=== PATIENT | male | born 1935 | race Caucasian/White ===

== ENCOUNTER 2016-05-14 04:52 | Inpatient (IN) | payer OTHER ==
[2016-04-19 11:55] VITALS: BMI 32.0
--- NOTE | 2016-04-19 12:39 | PAT Medication Instructions ---
Service Date Apr 19, 2016. Current Home Medication List Aspirin (Aspirin), 325 MG PO HS Budesonide/Formoterol Fumarate (Symbicort 160/4.5 Inhaler ), 2 PUFFS INH BID Carvedilol (Coreg), 6.25 MG PO QAM Digoxin (Digoxin), 1 TAB PO QAM Esomeprazole Magnesium (Nexium), 40 MG PO DAILY PRN for Indigestion Ezetimibe (Zetia), 10 MG PO HS Metformin Hcl (Glucophage Ext Rel), 1,000 MG PO BID Montelukast Sodium (Montelukast Sodium), 1 TAB PO QAM Nifedipine (Procardia), 10 MG PO BID Simvastatin (Zocor), 20 MG PO QPM Sitagliptin (Januvia), 100 MG PO QAM Tiotropium [place] (Spiriva Handihaler), 1 CAP INH QAM Triamterene/Hctz (Dyazide 37.5MG/25MG), 1 TAB PO QAM Zolpidem Tartrate (Zolpidem Tartrate), 1 TAB PO HS PRN for Insomnia [Captopril], 50 MG PO QAM [Nebulizer], 1 DOSE INH UD PRN for SOB/Wheezing Medication Instructions For Your Scheduled Surgery Aspirin (Aspirin), 325 MG PO HS (changed from aspirin 325mg to aspirin 81 one week prior to surgery and continue as usual) - Hold the following medications 48 hours prior to surgery: Metformin Hcl (Glucophage Ext Rel), 1,000 MG PO BID - Hold the following medications the morning of surgery: Triamterene/Hctz (Dyazide 37.5MG/25MG), 1 TAB PO QAM Sitagliptin (Januvia), 100 MG PO QAM Captopril 50 MG PO QAM - Take the following medications the morning of surgery with a sip of water: Nebulizer 1 DOSE INH UD PRN for SOB/Wheezing (if needed) Tiotropium [place] (Spiriva Handihaler), 1 CAP INH QAM Nifedipine (Procardia), 10 MG PO BID Montelukast Sodium (Montelukast Sodium), 1 TAB PO QAM Esomeprazole Magnesium (Nexium), 40 MG PO DAILY PRN for Indigestion Digoxin (Digoxin), 1 TAB PO QAM Carvedilol (Coreg), 6.25 MG PO QAM Budesonide/Formoterol Fumarate (Symbicort 160/4.5 Inhaler ), 2 PUFFS INH BID - Take the following medications as scheduled the night before surgery: Zolpidem Tartrate (Zolpidem Tartrate), 1 TAB PO HS PRN for Insomnia Simvastatin (Zocor), 20 MG PO QPM Nifedipine (Procardia), 10 MG PO BID Ezetimibe (Zetia), 10 MG PO HS Budesonide/Formoterol Fumarate (Symbicort 160/4.5 Inhaler ), 2 PUFFS INH BID Aspirin 81mg If you have any questions please call us at [phone] or [phone] ( Meghan) or [phone]
--- NOTE | 2016-04-19 13:16 | DIAGNOSTIC IMAGING REPORT ---
CHEST PREADMISSION(PA/LAT) CLINICAL HISTORY: PAT preoperative evaluation COMPARISON STUDY: None. FINDINGS: Prior median sternotomy. Thoracic aorta is tortuous. Diaphragms smooth. Lungs are clear. IMPRESSION:: No acute process. Prior median sternotomy. Electronically signed by: Jah Toth M.D. 04/19/2016 1:14 PM Dictated Date/Time: 04/19/2016 1:14 PM
[2016-04-19 13:28] LABS: BASO % 0.3 %; BASO ABS # 0.02 K/uL (0-0.2); COMPLETE YES; EOS % 2.7 %; HEMATOCRIT 43.8 % (42-52); IG% 0.1 %; LYMPH % 32.2 %; LYMPH ABS # 2.48 K/uL (1.2-3.4); MEAN CELL VOLUME 86.7 fL (80-100); MEAN CORPUSCULAR HEMOGLOBIN 31.1 pg (25-34); MEAN CORPUSCULAR HGB CONC 35.8 g/dl (32-36); MEAN PLATELET VOLUME 9.9 fL (7.4-10.4); MONO % 5.2 %; NEUT % 59.5 %; PLATELET COUNT 163 K/uL (130-400); RED BLOOD COUNT 5.05 M/uL (4.7-6.1); WHITE BLOOD COUNT 7.71 K/uL (4.8-10.8)
[2016-04-19 13:34] LABS: INR 1.1 (0.9-1.1); PARTIAL THROMBOPLASTIN RATIO 1.2; PROTHROMBIN TIME (PATIENT) 11.4 SECONDS (9.0-12.0)
[2016-04-19 13:37] LABS: ESTIMATED AVERAGE GLUCOSE 148 mg/dl; HA1C FLAG Normal (Normal)
[2016-04-19 13:42] LABS: URINE APPEARANCE CLEAR (CLEAR); URINE BILIRUBIN NEG (NEG); URINE COLOR YELLOW; URINE NITRITE NEG (NEG); URINE SPECIFIC GRAVITY 1.019 (1.000-1.030); UROBILINOGEN NEG (NEG); ZZUR CULT IF INDIC CLEAN CATCH NO
[2016-04-19 13:51] LABS: MANUAL MICROSCOPIC REQUIRED? NO; REVIEW REQ? NO
--- NOTE | 2016-05-04 13:35 | HISTORY & PHYSICAL EXAMINATION ---
DATE OF ADMISSION: 05/14/2016 CHIEF COMPLAINT: Left knee pain. HISTORY OF PRESENT ILLNESS: Mr. Suarez is an 81-year-old male with a multiple year history of pain in his left knee. The patient rates his pain a 9/10. He has pain with his daily activities. He has limited standing and walking tolerance. Pain is worse with weightbearing. The patient has failed conservative treatment and is scheduled for left knee replacement. PAST MEDICAL HISTORY: Hypertension, hypercholesterolemia, history of heart disease, diabetes and Afib. He denies history of DVT. PAST SURGICAL HISTORY: Cardiac bypass, right total knee arthroplasty. SOCIAL HISTORY: The patient denies alcohol or tobacco use. He quit smoking in 1980. He lives in a single story home. He is and retired. FAMILY HISTORY: Negative for DVT. MEDICATIONS: Captopril 50 mg daily, carvedilol 12.5 mg half tablet daily, digoxin 0.25 mg daily, omeprazole 40 mg daily, 10 mg daily, hydrochlorothiazide/triamterene 75 mg half tablet daily, metformin 1000 mg b.i.d., montelukast 10 mg daily, nifedipine 10 mg b.i.d., simvastatin 40 mg daily, sitagliptin 100 mg daily, zolpidem 10 mg daily. ALLERGIES: None. REVIEW OF SYSTEMS: See HPI. Ten other systems reviewed, all negative. PHYSICAL EXAMINATION: VITAL SIGNS: Height 6 foot 1, weight 245 pounds, BMI not calculated. GENERAL: This is a well-developed, well-nourished male who is alert and oriented x3. Mood and affect are appropriate. HEAD, EYES, EARS, NOSE, AND THROAT: Normocephalic, atraumatic. Mucous membranes are moist and intact. NECK: Supple without lymphadenopathy. HEART: Regular rate and rhythm without murmurs, rubs or gallops. LUNGS: Clear to auscultation without wheezes or rhonchi. ABDOMEN: Soft and nontender. Bowel sounds are equal and active. EXTREMITIES: No ecchymosis, redness or warmth. Thigh and calf are soft and nontender. He has a varus deformity. Range of motion is from 5-115 degrees with +1 laxity. He is neurovascularly intact with +5/5 strength. X-RAY EXAMINATION: AP and lateral views show joint space narrowing and osteophyte formation. IMPRESSION: Degenerative joint disease left knee. PLAN: The patient will be admitted for a left total knee arthroplasty. We will plan on aspirin for DVT prophylaxis. BRYSON
[2016-05-14] VITALS (10 sets, daily range): BP systolic 127–178; BP diastolic 50–90; PULSE 60–70; TEMP 36.4–36.7; O2SAT 94–97; Ht 185.4 cm; Wt 111.0 kg
[~2016-05-14] VITALS: Ht 185.4 cm; Wt 111.0 kg
[~2016-05-14 04:52] MED LIST: ASPI325T45 PO; CAPTPOW PO; CARV6.252 PO; EZET10TA63 PO; LACTATED RINGER'S 1000ML 1,000 ML IV SCH; LNX25 PO; METF1TAB53 PO; MONT1TAB5 PO; NEBUMIS38 INH; NIFE10CA20 PO; NXM/40 PO; SIMV20TA2 PO; SITA50TA3 PO; SPRIN/30 INH; SYMIN160 INH; TRIA37.5 PO; ZOLP10TA6 PO
[2016-05-14] MEDS ORDERED: LACTATED RINGER'S 1000ML 1,000 ML IV SCH ×2 (06:00)
[2016-05-14] MEDS ORDERED: LACTATED RINGER'S 1000ML 500 ML IV ONE (06:00)
[2016-05-14] MEDS ORDERED: OXYCODONE HCL 10 MG TABCR (OXYCONTIN) PO SCH (06:00)
[2016-05-14] MEDS ORDERED: POLYMYXIN B SULFATE 100,000 UNITS in NSS 100ML IR SCH (06:00)
[2016-05-14] MEDS ORDERED: ACETAMINOPHEN 500 MG TAB PO SCH (06:00)
[2016-05-14] MEDS ORDERED: VANCOMYCIN INJ 400 MG in NSS 100ML IR SCH (06:00)
[2016-05-14] MEDS ORDERED: CARVEDILOL 6.25 MG TAB PO SCH (06:00)
[2016-05-14] MEDS ORDERED: DIGOXIN 0.25 MG TAB PO SCH (06:00)
[2016-05-14] MEDS ORDERED: CAPTOPRIL 25 MG TAB PO SCH (06:00)
[2016-05-14] MEDS ORDERED: GABAPENTIN 300 MG CAP PO SCH (06:00)
[2016-05-14] MEDS ORDERED: CEFAZOLIN 2000 MG/60 ML D5W 60 ML IV SCH (06:00)
[2016-05-14] MEDS ORDERED: CeleBREX 200 MG CAP PO SCH (06:00)
[2016-05-14] MEDS ORDERED: ROPIVACAINE 5MG/ML 30 ML 150 MG, BUPIVACAINE/EPINEPHR 0.5% MPF 30 ML, KETOROLAC TROMETH... INFIL SCH ×7 (06:00)
[2016-05-14] MEDS ORDERED: FAMOTIDINE 20 MG TAB PO SCH (06:00)
[2016-05-14] MEDS ORDERED: NIFEdipine 10 MG CAP PO SCH (06:00)
[2016-05-14] MEDS ORDERED: METOCLOPRAMIDE HCL 10 MG TAB PO SCH (06:00)
[2016-05-14] MEDS: TRANEXAMIC ACID INJ 1,000 MG in SODIUM CHLORIDE 0.9% 100ML 100 ML IV SCH ×2 (06:23→06:30)
[2016-05-14] MEDS ORDERED: BUPIVACAINE 0.5 % 5 MG/1 ML PF 10ML VIAL ONE (06:32)
[2016-05-14] MEDS ORDERED: BUPIVACAINE 0.25% 30 ML VIAL ONE (06:32)
--- NOTE | 2016-05-14 06:38 | History & Physical Bridge Note ---
H&P Re-Evaluation Bridge Note: I have examined the patient, reviewed the History & Physical and in the interval since the performance of the History & Physical I have noted the following changes of clinical significance: No changes noted
[2016-05-14] MEDS ORDERED: ORTHO JOINT ANESTHETIC ONE (06:53)
[2016-05-14] MEDS ORDERED: POVIDONE-IODINE OP SOLN 30 ML BTL ONE (06:53)
[2016-05-14] MEDS ORDERED: BUPIVACAINE/EPINEPHRINE 0.25% 1:200,000 30 ML VIAL ONE (06:53)
[2016-05-14] MEDS ORDERED: BACITRACIN 50000 UNIT VIAL ONE (06:53)
[2016-05-14] MEDS ORDERED: FENTANYL CITRATE INJ 50 MCG/1 ML 2 ML VIAL ONE (07:01)
[2016-05-14] MEDS ORDERED: MIDAZOLAM HCL 1 MG/ML 2ML VIAL ONE (07:01)
[2016-05-14] MEDS ORDERED: ONDANSETRON INJ 2 MG/ML 2 ML VIAL ONE (07:20)
[2016-05-14] MEDS ORDERED: EpHEDrine SULFATE 50MG/5ML SYR ONE (07:36)
[2016-05-14] MEDS ORDERED: PROPOFOL IV EMULSION 10 MG/ML 20 ML VIAL IV ONE (07:36)
[2016-05-14] MEDS ORDERED: ONDANSETRON INJ 2 MG/ML 2 ML VIAL IV PRN ×2 (07:45→08:15)
[2016-05-14] MEDS ORDERED: ATROPINE SULFATE 0.1 MG/ML 5ML SYR IV PRN (07:45)
[2016-05-14] MEDS ORDERED: FENTANYL CITRATE INJ 50 MCG/1 ML 2 ML VIAL IV PRN (07:45)
[2016-05-14] MEDS ORDERED: EpHEDrine SULFATE INJ 50 MG/ML AMP IV PRN (07:45)
--- NOTE | 2016-05-14 08:12 | [facility] Post Operative Brief Note ---
Immediate Operative Summary Operative Date May 14, 2016. Pre-Operative Diagnosis Left knee degenerative joint disease Post-Operative Diagnosis Left knee degenerative joint disease Procedure(s) Performed Left total knee arthroplasty Surgeon Dr. Doroteo Seay [employer] Supervisor Surgeon(s) Vikas Gaytan PA-C Estimated Blood Loss 100 Findings djd Specimens A. Left knee bone and tissue Complication(s) None Disposition Recovery Room / PACU
[2016-05-14] MEDS ORDERED: METOCLOPRAMIDE HCL INJ 5 MG/ML 2 ML VIAL IV PRN (08:15)
[2016-05-14] MEDS ORDERED: ZOLPIDEM TARTRATE 5 MG TAB PO PRN (08:15)
[2016-05-14] MEDS ORDERED: SOD PHOSPHATE/SOD BIPHOSPHATE ENEMA 132 ML BTL PR PRN (08:15)
[2016-05-14] MEDS ORDERED: DiphenhydrAMINE HCL 50 MG/ML VIAL IV PRN (08:15)
[2016-05-14] MEDS ORDERED: ALUMINUM/MAGNESIUM/SIMETH (MAALOX MAX) 30 ML UDC PO PRN (08:15)
[2016-05-14] MEDS ORDERED: MoRPHine SULFATE 2 MG/ML CARP IV PRN (08:15)
[2016-05-14] MEDS ORDERED: KETOROLAC TROMETHAMINE 15 MG/ML VIAL IV. PRN (08:15)
[2016-05-14] MEDS ORDERED: TRAMADOL HCL 50 MG TAB PO PRN (08:15)
[2016-05-14] MEDS ORDERED: BISACODYL 10 MG SUPP PR PRN (08:15)
[2016-05-14] MEDS ORDERED: TAMSULOSIN HCL 0.4 MG CAP PO PRN (08:15)
[2016-05-14] MEDS ORDERED: ZOLPIDEM TARTRATE 10 MG TAB PO PRN (08:15)
[2016-05-14] MEDS ORDERED: MAGNESIUM HYDROXIDE SUSP 30 ML UDC PO PRN (08:15)
[2016-05-14] MEDS ORDERED: PHARMACY GLYCEMIC MGMT CONSULT PRN (08:25)
[2016-05-14] MEDS: MULTIVITAMIN TAB PO SCH (09:00)
[2016-05-14] MEDS ORDERED: SITAGLIPTIN 100 MG PO SCH (09:00)
[2016-05-14] MEDS: PANTOprazole SOD 40 MG TAB PO SCH (09:00)
--- NOTE | 2016-05-14 09:31 | Anesthesiology Progress Note ---
Anesthesia Post Op Note Date & Time May 14, 2016 at 09:31 Vital Signs Pain Intensity: 0 Vital Signs Past 12 Hours Date Time Temp Pulse Resp B/P Pulse Ox O2 Delivery O2 Flow Rate FiO2 05/14/16 09:25 36.7 68 22 145/83 98 Nasal Cannula 2 05/14/16 09:15 59 25 133/74 98 Nasal Cannula 2 05/14/16 09:05 61 15 144/76 98 Nasal Cannula 2 05/14/16 08:55 57 21 138/74 100 Mask 10 05/14/16 08:48 36.4 60 14 129/74 100 Mask 10 05/14/16 05:38 36.6 60 20 178/90 97 Room Air Notes Mental Status: alert / awake / arousable, participated in evaluation Pt Amnestic to Procedure: Yes Nausea / Vomiting: adequately controlled Pain: adequately controlled Airway Patency, RR, SpO2: stable & adequate BP & HR: stable & adequate Hydration State: stable & adequate Neuraxial Anesthesia: was administered, sensory block is resolving Anesthetic Complications: no major complications apparent
--- NOTE | 2016-05-14 10:54 | DIAGNOSTIC IMAGING REPORT ---
LEFT KNEE 2 VIEWS CLINICAL HISTORY: Degenerative arthritis. Postop study. COMPARISON: None. DISCUSSION: There are postsurgical changes of a total left knee arthroplasty and patellar resurfacing. The femoral and tibial components appear well seated. Overlying surgical drains are evident. There is air in the soft tissues consistent with history of recent surgery. IMPRESSION: Postsurgical changes of a total left knee arthroplasty. Electronically signed by: Alfred Jeffrey M.D. 05/14/2016 10:52 AM Dictated Date/Time: 05/14/2016 10:51 AM
[2016-05-14] MEDS ORDERED: PNEUMOCOCCAL POLYSACCHARIDES 25 MCG/0.5 ML VIAL/SYR IM. ONE (11:15)
[2016-05-14] MEDS ORDERED: PNEUMOCOCCAL ADMINISTRATION CHARGE ONE (11:15)
--- NOTE | 2016-05-14 11:31 | Pharmacy Progress Note ---
Glycemic Control Intl Consult Date of Service May 14, 2016. Scope Glycemic Pharmacist consulted by on 05/14/16 for glycemic control and to write orders per [facility] inpatient glycemic control protocol Objective Weight (Kilograms): 111.000 Accuchecks BSG (last 24hrs): Test 05/14/16 05:33 05/14/16 09:09 05/14/16 10:19 Bedside Glucose 173 mg/dl (70-99) 188 mg/dl (70-99) 206 mg/dl (70-99) Recent Pertinent Medications Outpatient Anti-diabetic Regimen: * Metformin 1gm BIDM, Januvia 100mg qAM * A1c = 6.8 % from 04/19/16 (EAG = 148 mg/dl) Risk Factors for Insulin Resistance: * Infection: Ancef for surgical prophylaxis xavier-op * IVF: NS at 100 ml/hr postop * Recent Surgery: POD 0 - L TKA * Diet: DM2 Assessment & Plan ASSESSMENT: * ADA & AACE recommend a goal blood sugar range 140-180 mg/dl for the majority of critically ill & non-critically ill patients. However, more stringent targets may be selected in individual cases. * 81 yo male admitted s/p L TKA today by Dr. Seay. * No steroids administered so far. * BSGs are well-controlled on home regimen of oral diabetes medications alone. Will hold these agents upon admission. Plan to resume home regimen 1-2 days prior to discharge assuming no interactions or contraindications to do so. Will assess kidney function prior to restart of Metformin or Januvia. * I do not suspect basal insulin is necessary for this pt. Will re-consider if FBG is elevated. * Will initiate inpatient regimen with Novolog SQ utilizing conservative weight- based dosing. Would expect that CR can be removed once oral DM meds re- introduced. * I suspect this pt will be insulin sensitive based upon A1c of less than 7.0% on oral DM agents alone. PLAN FOR INPATIENT GLYCEMIC CONTROL: * Hold oral diabetes medications * No basal insulin * Novolog ACHS * Set correction factor to 40 mg/dl/unit * Set carb ratio to 1 unit per 15 grams CHO consumed * Set goal range to Low 110 mg/dL - High 140 mg/dL - more stringent goal chosen in an effort to improve glycemic control post-operatively aiding in the healing process. * Please note that the plan above was derived based on current level of insulin resistance and hospital stress. These recommendations are appropriate for inpatient admission only. Plan of care upon discharge will need to be reassessed to avoid potential outpatient hypo/hyperglycemia. Thank you.
[2016-05-14] MEDS: SODIUM CHLORIDE 0.9% 1000ML 1,000 ML IV SCH ×2 (11:40→17:47)
[2016-05-14] MEDS ORDERED: DEXTROSE 50% 50 ML SYR IV PRN (11:45)
[2016-05-14] MEDS ORDERED: GLUCOSE 40% GEL 15 GM TUBE PO PRN (11:45)
[2016-05-14] MEDS ORDERED: GLUCOSE 10 TABS/TUBE PO PRN (11:45)
[2016-05-14] MEDS ORDERED: GLUCAGON FOR INJ 1 MG VIAL SQ PRN (11:45)
[2016-05-14] MEDS: INSULIN ASPART 100 UNITS/ML 3 ML PEN SC SCH ×3 (12:09→21:04)
[2016-05-14] MEDS: ACETAMINOPHEN 500 MG TAB PO SCH ×2 (13:31→20:59)
[2016-05-14] MEDS: CEFAZOLIN IV 2,000 MG in DEXTROSE 5% 50ML 50 ML IV SCH ×2 (14:22→20:58)
[2016-05-14] MEDS ORDERED: TRANEXAMIC ACID INJ 1,000 MG in SODIUM CHLORIDE 0.9% 100ML 100 ML IV SCH (14:30)
--- NOTE | 2016-05-14 14:33 | CARDIOLOGY CONSULTATION REPORT ---
DATE OF CONSULTATION: 05/14/2016 REASON FOR CONSULTATION: 1. Postoperative medical and cardiologic management. 2. CAD status post CABG x1 vessel 33 years ago (arterial graft, details unknown). HISTORY OF PRESENT ILLNESS: Mr. Suraez is a very pleasant 81-year-old white male with a history of type 2 diabetes mellitus, hypertension, dyslipidemia, advanced DJD, paroxysmal atrial fibrillation/atrial flutter, and longstanding CAD status post CABG x1 vessel 33 years ago (arterial graft, details unknown. Surgery performed at [facility]). The patient underwent a left total knee arthroplasty earlier today with Dr. Doroteo Seay, and thus far his postoperative course has been uncomplicated. The patient is currently being seen in room 311 and admits to regurgitating a bit of his lunch due to a probable esophageal stricture. He needs to cut his meat up into smaller pieces before he tries to eat it. He is otherwise doing well. He has been completely asymptomatic from a cardiac standpoint since being admitted, and leading up to this hospitalization. The patient has not had any angina pectoris in years. He was somewhat limited in his activities by left knee pain, leading up to this surgery, but golfed 5 different times in April, walking 18 holes. This was approximately a 2-mile walk. He specifically denies any exertional chest pain, heaviness, tightness, pressure or angina pectoris. No exertional neck, jaw, back or arm pain. No shortness of breath, unusual dyspnea on exertion, or any recent decrease in exertional tolerance. He further denies any recent atrial fibrillation, but he was asymptomatic in the past with this. He denies any palpitations, tachy palpitations, syncope or near syncope. MEDICATIONS: 1. Celebrex 200 mg daily. 2. Digoxin 250 mcg daily. 3. Coreg 6.25 mg b.i.d. 4. Spiriva Handihaler 1 puff q.a.m. 5. Dyazide 37.5/25 one capsule daily. 6. Captopril 50 mg each morning. 7. OxyContin 10 mg p.o. q. 12 hours. 8. Senokot 17.2 mg at bedtime. 9. Aspirin 81 mg b.i.d. 10. Symbicort 160/4.5 two puffs b.i.d. 11. Zetia 10 mg at bedtime. 12. Procardia 10 mg b.i.d. 13. Zocor 20 mg at bedtime. 14. Ancef 2000 mg IV q. 8 hours. 15. Tylenol 1000 mg p.o. q. 8 hours. 16. NovoLog sliding scale insulin. 17. Multivitamin daily. 18. Protonix 40 mg a day. 19. OxyIR 1 or 2 tablets every 4 hours as needed for pain. 20. Morphine sulfate 2 mg IV q. 2 hours while awake as needed for severe breakthrough pain. 21. Milk of magnesia p.r.n. 22. Dulcolax p.r.n. 23. Fleet Enema p.r.n. 24. Benadryl p.r.n. 25. Maalox Max p.r.n. 26. Zofran 4 mg q. 6 hours IV p.r.n. for nausea or vomiting. 27. Reglan 10 mg IV q. 6 hours p.r.n. for nausea or vomiting. 28. Flomax 0.4 mg q.a.m. as needed if unable to void. 29. Ultram 1 tablet p.o. q. 4 hours p.r.n. 30. Toradol 15 mg IV q. 6 hours p.r.n. for pain. 31. Ambien 10 mg at bedtime p.r.n. for sleep. 32. Normal saline at 100 mL per hour. ALLERGIES: NKDA. PAST MEDICAL HISTORY: 1. CAD status post CABG x1 vessel 33 years ago (arterial graft, details unknown). 2. DJD status post left TKA earlier today. 3. History of right TKA 7 years ago. 4. Hypertension. 5. Dyslipidemia. 6. Type 2 diabetes mellitus. 7. COPD. 8. Prior history of tobacco use. 9. Obesity. 10. Paroxysmal atrial fibrillation/atrial flutter, currently normal sinus rhythm. 11. First degree AV block. 12. He specifically denies any history of myocardial infarction, CHF, rheumatic fever. No history of stroke or mini stroke. SOCIAL HISTORY: The patient is and lives with his . He is retired from work, still enjoys golfing. He previously smoked approximately 2 packs per day for 20-25 years, quit in 1980. FAMILY HISTORY: Significant for hypertension, hypercholesterolemia, and CAD. PHYSICAL EXAMINATION: VITAL SIGNS: Temperature is 36.6 degrees Celsius, pulse is 70 and regular, respiratory rate is 14 and unlabored, blood pressure is 175/85, SpO2 is 95% on room air. GENERAL: The patient is in no acute distress. HEENT: Head is atraumatic, normocephalic. EOMs intact. Sclerae are anicteric. Face is symmetric. No perioral cyanosis. Mucous membranes moist. NECK: Without thyromegaly, adenopathy, or JVD. Carotid upstrokes +2 bilaterally without bruits. CHEST AND LUNGS: With mildly diminished breath sounds throughout. No wheezes, rales or rhonchi. CARDIOVASCULAR: S1 and S2 are regular with a grade 1/6 apical systolic murmur. No diastolic murmur is appreciated. No gallops or rubs. PMI is nondisplaced. No lifts, heaves, or thrills. No abdominal, aortic, or renal bruits. ABDOMEN: Bowel sounds are present. No masses, organomegaly or tenderness. EXTREMITIES: Without clubbing, cyanosis or edema. Intact posterior tibial and radial pulses bilaterally. NEUROLOGIC: The patient is awake, alert, interactive. Answers questions appropriately. Speech is clear. Normal movement in bilateral upper extremities. Gait pattern not assessed. Preoperative EKG shows a normal sinus rhythm at a rate of 68 beats per minute with a first degree AV block and an incomplete LBBB. No prior EKGs available for comparison. ASSESSMENT: 1. Postoperative day #0, left TKA. 2. Coronary artery disease status post coronary artery bypass grafting x1 vessel 33 years ago (arterial graft, details unknown). 3. Chronic obstructive pulmonary disease, quiescent. 4. Hypertension. 5. Dyslipidemia. 6. Type 2 diabetes mellitus. 7. No angina pectoris or anginal equivalent symptoms. 8. No signs or symptoms of congestive heart failure. 9. No symptom suggestive of dysrhythmia. PLAN: 1. The patient is stable from cardiac and medical standpoint postoperatively. 2. His surgical pain is well controlled. 3. Continue Coreg 6.25 mg b.i.d. 4. Continue long-term Zocor 20 mg at bedtime. 5. Continue Digoxin 250 mcg daily. 6. Continue Dyazide 37.5/25 one tablet daily. 7. Continue captopril 50 mg daily with hold parameters based on systolic blood pressure. 8. Continue Procardia 10 mg b.i.d. with hold parameters based on systolic blood pressure. 9. Continue inhalers. 10. Continue sliding scale insulin to cover blood sugars. 11. He will resume Januvia and metformin on discharge. 12. Continue PPI as he is currently on. 13. Monitor daily H&H, PRP. 14. Physical therapy as per protocol. 15. DVT prophylaxis as per surgeon. 16. We will continue to follow while hospitalized. BRYSON
--- NOTE | 2016-05-14 16:41 | OPERATIVE REPORT ---
DATE OF OPERATION: 05/14/2016 PREOPERATIVE DIAGNOSIS: Degenerative arthritis, left knee. POSTOPERATIVE DIAGNOSIS: Same. PROCEDURE: Left total knee with patient-matched implant. SURGEON: Dr. Seay. MEDIA TECHNICIAN: JAISON Dinh. ANESTHESIA: Spinal. BLOOD LOSS: 100 mL. REPLACEMENT FLUIDS: 1900 mL crystalloid. DRAINS: Hemovac x2. CULTURES: None. COMPLICATIONS: None. COMPONENTS USED: [employer] Knee System: Femur size 7, tibia size 7 x 9, and patella size 48. NOTE: JAISON Dinh was present and assisted throughout due to the complicated nature of this case. He helped with preparation and set up, first assisted throughout and personally closed the capsule, subcutaneous and skin layers and applied the postoperative dressing. DESCRIPTION: Following satisfactory spinal, the patient was supine. A tourniquet was placed, but not inflated. The lower extremity was prepared with ChloraPrep and draped sterilely. Following a surgical time-out, a midline incision was made with a trivector approach. The knee showed marked grade 4 changes throughout with absence of the anterior cruciate ligament. The posterior cruciate ligament was excised. The patient matched femoral block was applied. Femoral distal rotation and resection were set and completed. The 4-in-1 block was used to finish preparation of the femur. The patient matched tibial block was applied. Tibial resection was completed. Patella was freehand cut. Soft tissue balancing was completed and a trial reduction showed good tensioning and stability on the collateral ligaments, stable range of motion, and the patella tracked well. The trial components were removed. The capsule was prepared with the orthopedic cocktail and after irrigation, the components were cemented using Simplex G cement. When the cement had hardened, the wound was irrigated. A Betadine soak was performed. After 5 minutes, the Betadine was irrigated. Two drains were placed. The arthrotomy was closed with a running suture of 0 V-Loc. Subcutaneous tissues with 2-0 Vicryl and the skin with a running subcuticular stitch of 3-0 V-Loc. Dermabond and dry dressing were applied. The patient was returned to his bed in stable condition. I attest to the content of the Intraoperative Record and any orders documented therein. Any exceptio ns are noted below.
[2016-05-14] MEDS: ASPIRIN 81 MG ECTAB PO SCH (20:19)
[2016-05-14] MEDS: NIFEdipine 10 MG CAP PO SCH (20:20)
[2016-05-14] MEDS: BUDESONIDE/FORMOTEROL FUMARATE 160/4.5 60 PUFFS/INHALER INH SCH (20:21)
[2016-05-14] MEDS: OXYCODONE HCL 10 MG TABCR (OXYCONTIN) PO SCH (20:25)
[2016-05-14] MEDS ORDERED: EZETIMIBE 10MG TAB PO SCH (21:00)
[2016-05-14] MEDS ORDERED: SIMVASTATIN 20 MG TAB PO SCH (21:00)
[2016-05-14] MEDS ORDERED: SENNA 8.6 MG TAB PO SCH (21:00)
[2016-05-14] MEDS: OXYCODONE HCL IR 5 MG TAB (IMMEDIATE RELEASE) PO PRN (23:30)
[2016-05-15] MEDS: SODIUM CHLORIDE 0.9% 1000ML 1,000 ML IV SCH (03:58)
[2016-05-15 04:05] VITALS: BP 129/72; PULSE 64; TEMP 36.7; O2SAT 94
[2016-05-15] MEDS: ACETAMINOPHEN 500 MG TAB PO SCH ×2 (05:44→13:55)
[2016-05-15 06:31] LABS: HEMATOCRIT 34.7 % (42-52); MEAN CELL VOLUME 87.8 fL (80-100); MEAN CORPUSCULAR HEMOGLOBIN 30.4 pg (25-34); MEAN CORPUSCULAR HGB CONC 34.6 g/dl (32-36); MEAN PLATELET VOLUME 9.3 fL (7.4-10.4); PLATELET COUNT 138 K/uL (130-400); RED BLOOD COUNT 3.95 M/uL (4.7-6.1); WHITE BLOOD COUNT 10.39 K/uL (4.8-10.8)
[2016-05-15 06:58] LABS: BUN/CREATININE RATIO 13.1 (10-20); CALCIUM 7.6 mg/dl (8.5-10.1); CREATININE 0.74 mg/dl (0.60-1.40); POTASSIUM 3.5 mmol/L (3.5-5.1)
[2016-05-15 07:08] VITALS: BP 144/77; PULSE 64; TEMP 36.6; O2SAT 95
[2016-05-15] MEDS: BUDESONIDE/FORMOTEROL FUMARATE 160/4.5 60 PUFFS/INHALER INH SCH (08:33)
[2016-05-15] MEDS: MULTIVITAMIN TAB PO SCH (08:35)
[2016-05-15] MEDS: ASPIRIN 81 MG ECTAB PO SCH (08:35)
[2016-05-15] MEDS: PANTOprazole SOD 40 MG TAB PO SCH (08:36)
[2016-05-15] MEDS: NIFEdipine 10 MG CAP PO SCH (08:36)
[2016-05-15] MEDS: OXYCODONE HCL 10 MG TABCR (OXYCONTIN) PO SCH (08:40)
[2016-05-15] MEDS: INSULIN ASPART 100 UNITS/ML 3 ML PEN SC SCH ×2 (08:45→13:04)
[2016-05-15] MEDS ORDERED: TIOTROPIUM BROMIDE 5 PUFF/90 MCG INH INH SCH (09:00)
[2016-05-15] MEDS ORDERED: TRIAMTERENE/HCTZ 37.5/25MG CAP PO SCH (09:00)
[2016-05-15] MEDS ORDERED: CAPTOPRIL 25 MG TAB PO SCH (09:00)
[2016-05-15] MEDS ORDERED: CARVEDILOL 6.25 MG TAB PO SCH (09:00)
--- NOTE | 2016-05-15 09:30 | Anesthesiology Progress Note ---
Anesthesia Post Op Note Date & Time May 15, 2016 at 09:29 Vital Signs Pain Intensity: 5.0 Vital Signs Past 12 Hours Date Time Temp Pulse Resp B/P Pulse Ox O2 Delivery O2 Flow Rate FiO2 05/15/16 07:36 Room Air 05/15/16 07:08 36.6 64 18 144/77 95 Room Air 05/15/16 04:05 36.7 64 18 129/72 94 Room Air 05/14/16 23:20 36.7 67 18 127/72 95 Room Air 05/14/16 23:09 Room Air Notes Mental Status: alert / awake / arousable, participated in evaluation Pt Amnestic to Procedure: Yes Nausea / Vomiting: adequately controlled Pain: adequately controlled Airway Patency, RR, SpO2: stable & adequate BP & HR: stable & adequate Hydration State: stable & adequate Neuraxial Anesthesia: was administered, sensory block resolved Anesthetic Complications: no major complications apparent
[2016-05-15 10:22] VITALS: BP 144/77; PULSE 64; TEMP 36.6; O2SAT 95
[2016-05-15 10:40] VITALS: BP 141/72; PULSE 61; O2SAT 94
[2016-05-15] MEDS: OXYCODONE HCL IR 5 MG TAB (IMMEDIATE RELEASE) PO PRN (11:28)
[2016-05-15 11:33] VITALS: BP 129/82; PULSE 61; TEMP 36.4; O2SAT 94
--- NOTE | 2016-05-15 12:06 | CARDIOLOGY PROGRESS NOTE ---
DATE: 05/15/2016 SUBJECTIVE: Mr. Suarez is resting comfortably in bed without complaints of chest pain or dyspnea. Postoperative pain is adequately controlled. OBJECTIVE: VITAL SIGNS: Blood pressure 144/77 with a regular pulse of 64. Respiratory rate is 18. The patient is afebrile at 36.6 degrees Celsius. Saturation 95% on room air. NECK: Supple with full carotid upstrokes. There are no carotid bruits. Jugular venous pressure is flat at 90 degrees. There is no thyromegaly. CARDIOVASCULAR: Reveals a regular rhythm with normal S1 and S2. A 1/6 apical holosystolic murmur is noted. No S3 or S4. LUNGS: Clear without rales, rhonchi or wheeze. ABDOMEN: Soft without bruits. EXTREMITIES: Reveal intact radial artery pulses bilaterally. Left knee is dressed. DATA: CBC notes hemoglobin of 12.0, hematocrit 34.7, white count 10.3, platelet count 138,000. Electrolytes note sodium of 138, potassium 3.5, chloride 101, bicarb 26, BUN 10, creatinine 0.74, glucose 160. INR is 1.1. IMPRESSION AND PLAN: 1. Status post left total knee replacement -- per Dr. Doroteo Seay. 2. Coronary artery disease -- status post one-vessel bypass 33 years ago. Stable on current medications. 3. Hypertension -- controlled. 4. Hypercholesterolemia -- continue statin. 5. Diabetes mellitus. 6. Chronic obstructive pulmonary disease. 7. Paroxysmal atrial fibrillation -- currently in sinus rhythm.
--- NOTE | 2016-05-15 12:39 | Orthopedic Progress Note ---
Orthopedic Progress Note Date of Service May 15, 2016. Subjective Post OP Day: 1 Reports: feeling well, Denies: SOB, calf pain, chest pain, light headedness, nausea / vomiting Objective calves soft nontender, N/V intact, dressing C/D/I, A&O x3, toes mobile, hemovac drainage (200/75 CC PER SHIFT) Date Time Temp Pulse Resp B/P Pulse Ox O2 Delivery O2 Flow Rate FiO2 05/15/16 11:33 36.4 61 17 129/82 94 Nasal Cannula 05/15/16 10:22 36.6 64 18 95 Room Air 05/15/16 07:36 Room Air 05/15/16 07:08 36.6 64 18 144/77 95 Room Air 05/15/16 04:05 36.7 64 18 129/72 94 Room Air 05/14/16 23:20 36.7 67 18 127/72 95 Room Air 05/14/16 23:09 Room Air 05/14/16 20:26 36.5 67 17 152/80 94 Room Air 05/14/16 20:00 95 Room Air 05/14/16 16:20 36.5 69 17 164/50 95 Room Air 05/14/16 16:18 Room Air 05/14/16 12:43 36.4 65 16 147/80 94 Room Air Laboratory Results 24 Hours: Test 05/15/16 06:13 Hematocrit 34.7 % Hemoglobin 12.0 g/dL Assessment & Plan Assessment: POD#1 SP [place] Inhouse Planning Pain Management: Celebrex, PO Tylenol, Oxy IR DVT Prophylaxis: TEDs, SCDs, ASA Discharge Planning Discharge Planning: home with home health ([facility])
--- NOTE | 2016-05-15 12:41 | Discharge Instructions ---
Discharge Instructions Date of Service May 15, 2016. Admission Reason for Admission: Left Knee Degenerative Arthritis Discharge Discharge Diagnosis / Problem: SP LEFT TKA Discharge Goals Goal(s): Decrease discomfort, Improve function, Increase independence Activity Recommendations Activity Limitations: per Instructions/Follow-up section . Instructions / Follow-Up Instructions / Follow-Up ACTIVITY RECOMMENDATIONS: SELF CARE INSTRUCTIONS AFTER TOTAL KNEE REPLACEMENT A. You may need to continue a physical therapy program after discharge from the hospital. There are several options available to you. Your doctor will assist you in selecting the best one for you. 1. An out-patient facility 2 to 3 times a week for therapy or home therapy. 2. Continue working on all exercises taught to you in the hospital. Your goals should be to increase bending of your knee to 90 degrees and beyond and to fully straighten your knee. B. You may progress at your own pace from walking with a walker or crutches to a cane; then to no assistive devices. C. Make walking a part of your daily routine. Be up as much as comfortable with rest periods throughout the day. Rest with leg elevation is very important. Use the ice wrap frequently for the first 3-4 weeks. D. There are no restrictions on activities. You may ride in a car, shop, participate in traveling crane operator and all social activities. E. Wear the long elastic stockings (JESUSITA hose) 20 hours a day for 2 weeks after surgery. They can be removed several times a day for laundering and for a bath. F. You may shower, no tub baths until cleared by your doctor. SPECIAL CARE INSTRUCTIONS: VERY IMPORTANT TO READ AND REVIEW A. There are a few signs you need to watch for after you are home. Call [facility] if you notice any of the followin. Increased severe knee pain. Some pain is expected especially when you exercise. 2. Increased swelling in your leg or knee; pain or swelling of the calf muscle in either lower leg. 3. Any fluid drainage from the incision. 4. Shortness of breath or chest pain. B. Please call [facility] at if you have any concerns or questions about your operation or recovery. The doctor or his nurse will return your call promptly. C. You must take antibiotics before dental work, bladder, bowel or other surgery. Your doctor will provide you with a permanent care to carry describing this precaution. IMPORTANT: * REMEMBER TO TAKE ASPIRIN, 81 MG, TWICE DAILY FOR 4 WEEKS UNLESS OTHERWISE DIRECTED. THIS IS YOUR BLOOD THINNER. * HIGH RISK PATIENTS MAY BE PRESCRIBED A STRONGER BLOOD THINNER. THIS WILL BE PROVIDED AT DISCHARGE. * CALL IF INCREASED PAIN, REDNESS, DRAINAGE OR FEVER GREATER THAT 101. * WEAR JESUSITA HOSE 20 HOURS PER DAY FOR 2 WEEKS. DERMABOND Prineo- This is a mesh tape dressing that is covered with glue. It should remain in place until the incision is properly healed, usually 10-14 days. This dressing is designed to naturally slough off. You may trim the excess mesh tape as it peels off. Incision may be briefly wet in a shower. Dry immediately by blotting with a clean, dry towel. Do not bath or swim until instructed by your doctor. Do not scratch, rub, or pick at the dressing. Do not apply any topical ointments or lotions until dressing is completely removed and/or instructed by your doctor. There may be a small piece of suture material at one end of your incision. Do not pull or trim this. If it is bothersome or catching on clothing, you may cover it with a band-aid. FOLLOW UP VISIT: If appointment is not already scheduled: Please call [facility] to make a follow-up appointment for 2 weeks after your surgery at . Current Hospital Diet Patient's current hospital diet: Diabetes Type 2 Diet Discharge Diet Recommended Diet: Regular Diet Procedures Procedures Performed: Left total knee arthroplasty Pending Studies Studies pending at discharge: no Laboratory Results Hemoglobin A1c Test 04/19/16 12:45 Range/Units Estimated Average Glucose 148 mg/dl Hemoglobin A1c 6.8 H 4.5-5.6 % Medical Emergencies . Who to Call and When: Medical Emergencies: If at any time you feel your situation is an emergency, please call 911 immediately. . Non-Emergent Contact Non-Emergency issues call your: Primary Care Provider . "Provider Documentation" section prepared by Melissa Saha. VTE Core Measure Inpt VTE Proph given/why not?: Other Anticoagulation, T.E.D. Stockings, SCD's [place] Drug Monitoring Program Search Results: patient reviewed within database, no issues identified
[2016-05-15] MEDS ORDERED: ONDA8TAB6 PO (12:44)
[2016-05-15] MEDS ORDERED: SNK PO (12:44)
[2016-05-15] MEDS ORDERED: ACET-1138 PO (12:44)
[2016-05-15] MEDS ORDERED: MORP-157 PO (12:44)
[2016-05-15] MEDS ORDERED: ASPEC81 PO (12:44)
[2016-05-15] MEDS ORDERED: CLB200 PO (12:44)
[2016-05-15] MEDS ORDERED: RXC5 PO (12:44)
--- NOTE | 2016-05-15 12:48 | Pharmacy Progress Note ---
Glycemic Control: Progress Nt Date of Service May 15, 2016. Scope Glycemic Pharmacist consulted by Dr Froy Seay on 05/14/16 for glycemic control and to write orders per [facility] inpatient glycemic control protocol. Objective Accuchecks BSG (last 24hrs): Test 05/14/16 16:29 05/14/16 20:30 05/15/16 06:13 05/15/16 07:57 Bedside Glucose 209 mg/dl (70-99) 206 mg/dl (70-99) 176 mg/dl (70-99) Random Glucose 160 mg/dl (70-99) Test 05/15/16 12:13 Bedside Glucose 219 mg/dl (70-99) Laboratory Data (last 24hrs) Test 05/15/16 06:13 Anion Gap 11.0 mmol/L BUN/Creatinine Ratio 13.1 Blood Urea Nitrogen 10 mg/dl Creatinine 0.74 mg/dl Potassium Level 3.5 mmol/L Sodium Level 138 mmol/L White Blood Count 10.39 K/uL Recent Pertinent Medications Outpatient Anti-diabetic Regimen: * Metformin 1gm BIDM, Januvia 100mg qAM * A1c = 6.8 % from 04/19/16 (EAG = 148 mg/dl) The patient is currently receiving: * Correctional Insulin: Novolog Correction per scale ACHS Goal Range: Low 110 mg/dL - High 140 mg/dL Correction Factor: 40 mg/dL/unit * Prandial insulin: Per carb ratio of 1 unit per 15 grams CHO consumed Risk Factors for Insulin Resistance: * Recent Surgery: POD 1 - L TKA * Diet: DM2 Assessment & Plan ASSESSMENT: 05/14/16 * ADA & AACE recommend a goal blood sugar range 140-180 mg/dl for the majority of critically ill & non-critically ill patients. However, more stringent targets may be selected in individual cases. * 81 yo male admitted s/p L TKA today by Dr. Seay. * No steroids administered so far. * BSGs are well-controlled on home regimen of oral diabetes medications alone. Will hold these agents upon admission. Plan to resume home regimen 1-2 days prior to discharge assuming no interactions or contraindications to do so. Will assess kidney function prior to restart of Metformin or Januvia. * I do not suspect basal insulin is necessary for this pt. Will re-consider if FBG is elevated. * Will initiate inpatient regimen with Novolog SQ utilizing conservative weight- based dosing. Would expect that CR can be removed once oral DM meds re- introduced. * I suspect this pt will be insulin sensitive based upon A1c of less than 7.0% on oral DM agents alone. 05/15/16 * Blood sugars slightly above goal range, will tighten CF and CR and add back orals starting this evening as renal function is stable and diet is normal. PLAN FOR INPATIENT GLYCEMIC CONTROL: * Metformin 1g PO BID - starting with dinner tonight * Januvia 100mg PO QAM - starting 05/16 * Novolog ACHS * TIGHTEN: correction factor to 30 mg/dl/unit * TIGHTEN: carb ratio to 1 unit per 10 grams CHO consumed * Continue goal range: Low 110 mg/dL - High 140 mg/dL - more stringent goal chosen in an effort to improve glycemic control post-operatively aiding in the healing process. * Please note that the plan above was derived based on current level of insulin resistance and hospital stress. These recommendations are appropriate for inpatient admission only. Plan of care upon discharge will need to be reassessed to avoid potential outpatient hypo/hyperglycemia. Thank you.
[2016-05-15] MEDS ORDERED: DIGOXIN 0.25 MG TAB PO SCH (16:00)
[2016-05-15] MEDS ORDERED: METFORMIN HCL 500 MG TABCR PO SCH (17:45)
[2016-05-15] MEDS ORDERED: METFORMIN HCL 500 MG TAB PO SCH (17:45)
[2016-05-16] MEDS ORDERED: SITAGLIPTIN 100 MG TAB PO SCH (09:00)
[2016-05-17] MEDS ORDERED: CeleBREX 200 MG CAP PO SCH (08:00)
--- NOTE | 2016-05-17 15:44 | DISCHARGE SUMMARY ---
DISCHARGE DIAGNOSIS: Degenerative joint disease, left knee. SECONDARY DIAGNOSES: Hypertension, hypercholesterolemia, coronary artery disease, diabetes mellitus, atrial fibrillation. CONSULTS: Aaron Meng PA-C/Jonathan Reynolds MD COMPLICATIONS: None. PROCEDURES: Left total knee arthroplasty performed by Dr. Burt Seay on 05/14/2016. BRIEF HISTORY OF PRESENT ILLNESS: As dictated in history and physical. HOSPITAL SUMMARY: The patient was admitted on the above-noted date and had the above-noted surgery performed which he tolerated well. On the first postoperative day, the patient was feeling well and had no complaints. Calves were soft and nontender. Neurovascularly was intact. Dressings were clean, dry and intact. Toes were mobile. Vital signs were stable. He was afebrile and hemoglobin was 12.0. He was started on physical therapy protocol and continued on DVT prophylaxis and pain management. Medically, the patient was remaining stable per Dr. Reynolds and he was progressing with his physical therapy and it was felt that he could be discharged to home on 05/15/2016. For further review, please see chart. LABORATORY AND X-RAY DATA: As per chart. DISCHARGE INSTRUCTIONS: The patient was discharged to home in satisfactory condition on 05/15/2016. DIET: Type 2 diabetic diet. ACTIVITY: Follow TK instruction sheets and special care instructions as noted. Follow up with Dr. Burt Seay in 2 weeks. The patient to call for appointment if one has not been made for you. DISCHARGE MEDICATIONS: Acetaminophen 1000 mg p.o. q. 8 hours, aspirin 81 mg p.o. b.i.d., Celebrex 200 mg p.o. daily, MS Contin 15 mg p.o. q. 12 hours, Zofran 8 mg p.o. q. 8 hours p.r.n., oxycodone 5-10 mg p.o. q. 4 hours p.r.n., senna 17.2 mg p.o. at bedtime. Resume home medications as listed in med rec list.
== END 2016-05-15 15:09 | disposition home health service (06) | DRG 470 ==
LOC: ENRESERVDT → ENRESERVTM → C.ACU 04:52 → C.3E 06:30
PROVIDERS: ADMIT Orthopaedic Surgery; ATTEND Orthopaedic Surgery
PROC: 0SRD0J9 Replacement of Left Knee Joint with Synthetic Substitute, Cemented, Open Approach (ICD-10-PCS; principal; 2016-05-14 07:00)
DX: M17.12 Unilateral primary osteoarthritis, left knee (principal); I48.92 Unspecified atrial flutter; E78.00 Pure hypercholesterolemia, unspecified; I25.10 Atherosclerotic heart disease of native coronary artery without angina pectoris; I48.0 Paroxysmal atrial fibrillation; E11.9 Type 2 diabetes mellitus without complications; K21.9 Gastro-esophageal reflux disease without esophagitis; J44.9 Chronic obstructive pulmonary disease, unspecified; M54.2 Cervicalgia; I10 Essential (primary) hypertension; M54.5 Low back pain; M54.6 Pain in thoracic spine; I44.0 Atrioventricular block, first degree; R20.0 Anesthesia of skin; E66.9 Obesity, unspecified; Z96.651 Presence of right artificial knee joint; Z68.32 Body mass index [BMI] 32.0-32.9, adult; Z87.891 Personal history of nicotine dependence; Z23 Encounter for immunization; Z79.82 Long term (current) use of aspirin; Z79.51 Long term (current) use of inhaled steroids; Z79.899 Other long term (current) drug therapy; Z79.84 Long term (current) use of oral hypoglycemic drugs